=== PATIENT | male | born 1980 | race Caucasian/White ===

== ENCOUNTER 2018-10-21 15:48 | Emergency (ER) | payer SELFPAY ==
[~2018-10-21] VITALS: Ht 170.2 cm; Wt 64.3 kg
[~2018-10-21 15:48] MED LIST: ACYC5CRE7 TOP; BEN25 PO; CEPH-443 PO; HYDR-4011 PO; IBUP-1542 PO; NPH10OT LEFT EAR; VALA500T PO
[2018-10-21 15:51] VITALS: BP 141/64; PULSE 104; RESP 16; Ht 170.2 cm; Wt 64.3 kg
== END 2018-10-21 17:16 | disposition home or self-care (01) ==
LOC: FTE 15:48
DX: R21 Rash and other nonspecific skin eruption (principal); H92.02 Otalgia, left ear; Z21 Asymptomatic human immunodeficiency virus [HIV] infection status; Z00.00 Encounter for general adult medical examination without abnormal findings
CPT/HCPCS: 81001; 86592; 87591; 99283

== ENCOUNTER 2018-10-24 13:47 | Emergency (ER) | payer OTHER ==
[~2018-10-24] VITALS: Ht 170.2 cm; Wt 66.2 kg
[2018-10-24 13:50] VITALS: BP 135/84; PULSE 89; RESP 16; Ht 170.2 cm; Wt 66.2 kg
== END 2018-10-24 15:04 | disposition home or self-care (01) ==
LOC: E/R 13:47
DX: L03.811 Cellulitis of head [any part, except face] (principal); Z21 Asymptomatic human immunodeficiency virus [HIV] infection status; Z87.891 Personal history of nicotine dependence
CPT/HCPCS: 99283